=== PATIENT | female | born 1980 | race Caucasian/White ===

== ENCOUNTER 2020-04-20 12:12 | Observation (INO) ==
[2020-04-20 15:03] LABS: Basophils % 0.5 %; Eosinophils % 1.1 %; Immature Granulocytes % 0.5 % (0-4); White Blood Count 1.9 K/mcL (4.3-11.1)
[2020-04-20 15:04] LABS: Hematocrit 30.7 % (35.3-44.9); Hemoglobin 10.7 g/dL (11.5-15.4); Immature Platelets 3.4 % (1.1-6.1); Lymphocytes # 0.6 K/mcL (0.6-4.6); Lymphocytes % 31.6 %; Mean Corpuscular HGB Conc 34.9 g/dL (31.6-35.5); Mean Corpuscular Hemoglobin 31.4 pg (28.0-33.3); Mean Platelet Volume 9.7 fL (9.4-12.4); Monocytes # 0.2 K/mcL (0.0-1.3); Monocytes % 10.7 %; Red Blood Count 3.41 M/mcL (3.82-4.97); Red Cell Distribution Width 12.2 % (11.5-14.5); Segmented Neutrophils % 55.6 %
[2020-04-20 15:15] LABS: INR 1.2; Prothrombin Time 13.2 Seconds (9.4-12.1)
[2020-04-20 15:18] LABS: Acetaminophen < 10 mcg/mL (10-20); Alanine Aminotransferase 152 Units/L (7-52); Albumin 3.3 g/dL (3.5-5.7); Albumin/Globulin Ratio 1.7 (1.1-2.2); Alkaline Phosphatase 111 Units/L (34-104); Aspartate Amino Transferase 120 Units/L (13-39); BUN/Creatinine Ratio 9 (6-26); Bilirubin,Direct 0.5 mg/dL (0.0-0.2); Bilirubin,Indirect 0.9 mg/dL (0.0-1.0); Bilirubin,Total 1.4 mg/dL (0.3-1.0); Blood Urea Nitrogen 5 mg/dL (6-20); Calcium 8.3 mg/dL (8.6-10.3); Carbon Dioxide 28 mEq/L (23-29); Chloride 108 mEq/L (98-107); Glucose 116 mg/dL (70-105); Osmolality,Calculated 286 (280-300); Potassium 3.9 mEq/L (3.5-5.1); Sodium 139 mEq/L (136-145); Total Protein 5.3 g/dL (6.4-8.9); eGFR For African Americans > 60 (> 60); eGFR For Non-African Americans > 60 (> 60)
[2020-04-20] MEDS ORDERED: *HR* Promethazine 25 MG/ML VIAL IVP PRN (15:22)
[2020-04-20] MEDS ORDERED: Naloxone 0.4 MG/ML INJ IVP PRN (15:22)
[2020-04-20] MEDS ORDERED: Ondansetron 4 MG/2 ML VIAL IVP PRN (15:22)
[2020-04-20] MEDS ORDERED: MOM Conc 10 ML UD.LIQ PO PRN (15:22)
[2020-04-20] MEDS ORDERED: *HR* HYDROcodone/Acet 5/325 mg TABLET PO PRN (15:22)
[2020-04-20] MEDS ORDERED: Mag Hydrox/Al Hydrox/Simeth 30 ML UDC PO PRN (15:22)
[2020-04-20 15:31] LABS: Neutrophils # 1.1 K/mcL (1.6-8.9); Platelet Count 78 K/mcL (140-400)
[2020-04-20 15:40] LABS: Hepatitis B Surface Antigen Nonreactive (Nonreactive)
[2020-04-20 16:09] LABS: Hepatitis B Core IgM Nonreactive (Nonreactive); Hepatitis C Virus Antibody Nonreactive (Nonreactive)
[2020-04-20 16:10] LABS: Hepatitis A Antibody IgM Nonreactive (Nonreactive)
[2020-04-20] MEDS ORDERED: Ibuprofen 600 MG TABLET PO PRN (16:40)
[2020-04-21 01:56] LABS: Hemoglobin 10.6 g/dL (11.5-15.4); Immature Granulocytes % 0.5 % (0-4)
[2020-04-21 01:58] LABS: Basophils % 0.5 %; Hematocrit 30.6 % (35.3-44.9); Immature Platelets 3.7 % (1.1-6.1); Lymphocytes # 0.7 K/mcL (0.6-4.6); Lymphocytes % 33.7 %; Mean Corpuscular HGB Conc 34.6 g/dL (31.6-35.5); Mean Corpuscular Hemoglobin 30.5 pg (28.0-33.3); Mean Corpuscular Volume 88.2 fL (83.0-100.0); Mean Platelet Volume 10.4 fL (9.4-12.4); Monocytes # 0.1 K/mcL (0.0-1.3); Monocytes % 5.4 %; Neutrophils # 1.2 K/mcL (1.6-8.9); Red Blood Count 3.47 M/mcL (3.82-4.97); Red Cell Distribution Width 12.4 % (11.5-14.5); Segmented Neutrophils % 58.9 %
[2020-04-21 02:03] LABS: Platelet Count 91 K/mcL (140-400)
[2020-04-21 02:14] LABS: Alanine Aminotransferase 147 Units/L (7-52); Albumin/Globulin Ratio 1.4 (1.1-2.2); Alkaline Phosphatase 100 Units/L (34-104); Aspartate Amino Transferase 107 Units/L (13-39); BUN/Creatinine Ratio 11 (6-26); Bilirubin,Total 1.2 mg/dL (0.3-1.0); Blood Urea Nitrogen 6 mg/dL (6-20); Carbon Dioxide 23 mEq/L (23-29); Chloride 110 mEq/L (98-107); Globulin 2.1 g/dL (2.4-3.5); Glucose 124 mg/dL (70-105); Osmolality,Calculated 287 (280-300); Potassium 3.6 mEq/L (3.5-5.1); Sodium 139 mEq/L (136-145); Total Protein 5.1 g/dL (6.4-8.9); eGFR For African Americans > 60 (> 60); eGFR For Non-African Americans > 60 (> 60)
[2020-04-21 02:24] LABS: Platelet Estimate Decreased (Normal)
[2020-04-21] MEDS ORDERED: Ketorolac 30 MG/ML VIAL IVP ONE (09:56)
[2020-04-21] MEDS ORDERED: Pantoprazole 40 MG VIAL IVP ONE (09:57)
[2020-04-21] MEDS: Doxycycline 100 MG in 0.9 % Sodium Chloride Mini Bag 100 ML IVPB SCH ×2 (10:23→17:40)
[2020-04-21] MEDS ORDERED: 0.9 % Sodium Chloride 1,000 ML IVC SCH (10:45)
[2020-04-21] MEDS ORDERED: SUMAtriptan 6 MG/0.5 ML SQ ONE (11:44)
[2020-04-21 18:42] VITALS: BP 114/74
[2020-04-27 11:22] LABS: Cytomegalovirus DNA (PCR) NOT DETECTED
[2020-04-29 23:04] LABS: EBV Quant Copy/mL <390 cpy/mL; Epstein Barr Virus Qnt Source PLASMA
[2020-04-30 12:37] LABS: EBV Quant Interpretation NOT DETECTED (Not Detected)
== END 2020-04-21 20:58 | disposition short-term general hospital (02) ==
LOC: 3BNU → SUATTDRO 13:42
PROVIDERS: ADMIT Internal Medicine; ATTEND Nurse Practitioner Adult Health